=== PATIENT | female | born 1950 | race Caucasian/White ===

== ENCOUNTER 2022-05-29 10:06 | Emergency (ER) | payer MEDICARE, SELFPAY ==
--- NOTE | ~2022-05-29 | XR_ITS ---
EXAMINATION: XR lumbar spine 2-3V DATE: 05/29/2022 12:19 INDICATION: Generalized pain post fall TECHNIQUE: Anteroposterior and lateral views of the lumbar spine, and cone-down lateral view of the l umbosacral junction were obtained. COMPARISON: None. FINDINGS: Minimal kyphosis centered at age indeterminate L2 compression fracture with 20% anterior vertebral ciera dy height loss. Remaining vertebral body heights are normal. Moderate disc height loss with degenerat gaetano endplate changes at L1-L2 through L4-L5. Mild disc height loss at L5-S1 and at T9-T10 through T11 -T12. Moderate to severe lower lumbar facet osteoarthritis with left-sided predominance. Chronic appe aring anterior angulation of the caudal-most sacral segment with smoothly curved cortices which could be either developmental or sequela of old trauma. Mild bilateral sacroiliac osteoarthritis. IMPRESSION: 1. Age-indeterminate L2 compression fracture with 20% anterior vertebral body height loss. 2. Moderate lumbar spondylosis. Reviewed, dictated and finalized at location A. IMPRESSION: 1. Age-indeterminate L2 compression fracture with 20% anterior vertebral body h eight loss. 2. Moderate lumbar spondylosis.
--- NOTE | ~2022-05-29 | XR_ITS ---
XR hip LT min 3V w AP pelvis 05/29/2022 11:27 Indication: Status post fall. Generalized pain. Procedure: 4 views left hip including AP pelvis Comparison: No prior studies for comparison. Findings: Mild osteoarthritis of the hips. There is lower lumbar spondylosis. No fracture or traumati c malalignment. Pelvic rings are intact. There is lower lumbar spondylosis. Impression: 1: No acute fracture. Reviewed, dictated and finalized at location A. Impression: 1: No acute fracture.
--- NOTE | ~2022-05-29 | CT_ITS ---
EXAMINATION: CT lumbar spine wo con DATE: 05/29/2022 12:49 INDICATION: Acute compression fracture. Fall. TECHNIQUE: Computed tomography (CT) of the lumbar spine was performed without intravenous contrast. A utomated exposure control and iterative reconstruction technique were employed. The dose-length produ ct was 804.82 mGy-cm. COMPARISON: Lumbar spine radiographs 05/29/2022 FINDINGS: There is mild kyphosis of upper lumbar spine. There is 3 mm anterolisthesis of L5 on S1. Th ere is mild chronic anterior wedging of L2 vertebral body. There is mildly decreased disc height at L 1-L2, severely decreased disc at L2-L3, mildly decreased disc at L3-L4, and moderately decreased disc height at L4-L5 and L5-S1. The following disc levels are specifically discussed: L1-L2: The disc is bulging. There is severe right and moderate left facet joint osteoarthritis. There is moderate right and mild left neural foraminal stenosis. There is mild central canal stenosis. L2-L3: The disc is bulging. There is mild bilateral facet joint osteoarthritis. There is mild bilater al neural foraminal stenosis. There is mild central canal stenosis. L3-L4: The disc is bulging. There is mild right and severe left facet joint osteoarthritis. There is mild bilateral neural foraminal stenosis. There is mild central canal stenosis. L4-L5: The disc is bulging. There is severe bilateral facet joint osteoarthritis. There is mild right and moderate left neural foraminal stenosis. There is mild central canal stenosis. L5-S1: The disc is bulging. There is severe bilateral facet joint osteoarthritis. There is moderate a nd mild left neural foraminal stenosis. There is mild central canal stenosis. IMPRESSION: 1. No acute fracture. 2. Severe lumbar spondylosis. Reviewed, dictated and finalized at location A.
--- NOTE | ~2022-05-29 | XR_ITS ---
XR knee LT min 4V 05/29/2022 12:19 INDICATION: Left knee pain PROCEDURE: 4 views left knee COMPARISON: No prior studies for comparison. FINDINGS: Fracture, dislocation or subluxation is not identified. No significant joint effusion. The soft tissues appear within normal limits. No foreign bodies are identified. There is mild osteoarthr itis of the left knee. IMPRESSION: 1: NO ACUTE BONE OR JOINT ABNORMALITY IDENTIFIED. Reviewed, dictated and finalized at location A.
[2022-05-29 10:13] VITALS: BP 134/72; PULSE 75; RESP 14; TEMP 36.1; O2SAT 97
[2022-05-29] MEDS: KETOROLAC 30 MG/ML VIAL (*BKC) IM (12:01)
--- NOTE | 2022-05-29 12:04 | ED.LOWEXIN ---
HPI - Extremity Injury (Lower) General Chief Complaint: Extremity Injury, Lower Stated Complaint: fell a month ago, bilateral knee pain since Time Seen by Provider: 05/29/22 11:29 Source: patient and RN notes reviewed Mode of arrival: ambulatory Limitations: no limitations History of Present Illness HPI Narrative: This is a 71 year old female who presents for evaluation of left hip and left knee pain. Patient states 1 month ago she fell and hit both knees on concrete directly. She states initially she has significant bruising to her left lower leg and knee. She was evaluated by her PCP for her fall. She had outpatient xray for her lumbar spine and left knee. She states xray of her lumbar spine was performed because she was having left lower back pain that radiated to her left posterior thigh. she has minimal pain with laying supine. Her pain worsens with movement. She denies dysuria, hematuria, urinary retention or urinary incontinence. She denies numbness or tingling. She has been taking ibuprofen for her pain, but she has not taken anything for pain today. She reports her pain is affecting her at work so she did not want to wait for her appointment with ortho. She states it was recommended for her to get MRI of her spine. Related Data Allergies Allergy/AdvReac Type Severity Reaction Status Date / Time Penicillins Allergy Rash Verified 05/29/22 10:07 Sulfa (Sulfonamide AdvReac Nausea Verified 05/29/22 10:07 Antibiotics) Review of Systems Review of Systems: All systems reviewed & are unremarkable except as noted in HPI and below Constitutional: Constitutional: Denies chills and Denies fatigue Eyes: Eyes: Denies change in vision ENT: Denies nasal congestion Musculoskeletal: Musculoskeletal: Reports back pain and Reports arthralgias Integumentary/Breasts: Skin/Breast: Denies rash and Denies skin ulcer Neurologic: Denies focal weakness and Denies numbness PMFSH Past Medical History Medical History (Updated 05/29/22 @ 13:34 by Tanya Damon MD) Patient denies medical problems Surgical History Surgical History (Updated 05/29/22 @ 12:11 by Tanya Damon MD) No pertinent past surgical history Social History Social History (Updated 05/29/22 @ 12:11 by Tanya Damon MD) Smoking status: Never smoker Exam Narrative: GENERAL: Well-appearing, well-nourished, and in no acute distress. HEAD: Normocephalic, atraumatic EYES: PERRLA and EOMI, conjunctiva clear without discharge NECK: Supple, without lymphadenopathy or mass RESPIRATORY: No respiratory distress, Airway patent, Respirations non-labored, Clear to auscultation without rales, rhonchi or wheeze HEART: Regular rate and rhythm. No murmur heard. Normal peripheral pulses. ABDOMEN: Soft, nontender, nondistended, normal active bowel sounds. No masses. No rebound or guarding, No organomegaly. EXTREMITIES: No edema, normal strength with full range of motion. left medial knee TTP, no swelling, no bruising , no erythema SKIN: Warm, dry, normal color without rash NEURO: Alert and oriented x3. CN 2-12 grossly intact. No focal deficits. PSYCH: Normal mood and affect. Course Reevaluation(s) Reevaluation #1: I Discussed with patient that her lumbar xray showed possible compression fracture so that is why CT lumbar ordered. She does not have acute fracture. She has have some bulging disc. I discussed her hip pain may be related to radicular pain. She has appointment with ortho. Date: 05/29/22 Time: 13:31 Vital Signs Vital signs: Vital Signs Temperature 97.0 F L 05/29/22 10:13 Pulse Rate 75 05/29/22 10:13 Respiratory Rate 14 05/29/22 10:13 Blood Pressure 134/72 05/29/22 10:13 Pulse Oximetry 97 05/29/22 10:13 Oxygen Delivery Room Air 05/29/22 10:13 Temperature 97.0 F L 05/29/22 10:13 Pulse Rate 72 05/29/22 13:41 Respiratory Rate 15 05/29/22 13:41 Blood Pressure 128/76 05/29/22 13:41 P
[2022-05-29 12:38] LABS: Appearance Urine Clear (Clear); Bilirubin Urine Negative (Negative); Color Urine Yellow (Yellow); Glucose Urine UA Negative (Negative); Ketones Urine Negative (Negative); Leukocyte Esterase Ur Negative LEU/UL (Negative); Nitrate Urine Negative (Negative); Protein Urine Negative (Negative); Specific Grav Ur 1.025 (1.001-1.035); Urobilinogen Urine 0.2 mg/dL (<2.0); pH Urine 5.5 (5.0-9.0)
[2022-05-29 12:43] LABS: Mucus Urine Rare /lpf; Squamous Epithelial Cell Urine Rare /hpf (Few); WBC Urine 0-3 /hpf
[2022-05-29 12:46] LABS: Add Urine Microscopic? YES; Blood Urine Trace-Intact (Negative)
[2022-05-29 13:41] VITALS: BP 128/76; PULSE 72; RESP 15; O2SAT 100
== END 2022-05-29 13:43 | disposition home or self-care (01) ==
PROVIDERS: Emergency Provider General Practice; PCP Nurse Practitioner Family
DX: M54.32 Sciatica, left side (principal); M25.562 Pain in left knee; M47.816 Spondylosis without myelopathy or radiculopathy, lumbar region
CPT/HCPCS: 72100; 72131; 73502; 73564; 81001; 96372; 99284; J1885